=== PATIENT | female | born 1955 | race Caucasian/White ===

== ENCOUNTER 2019-11-16 13:40 | Emergency (ER) | payer OTHER, SELFPAY ==
[2019-11-16 13:45] VITALS: BP 133/60; PULSE 89; RESP 16; TEMP 36.4; O2SAT 99
--- NOTE | 2019-11-16 13:47 | DI.RAD.S_ITS ---
PROCEDURE: XR WRIST RT MIN 3V INDICATIONS: glf, rt wrist pain TECHNIQUE: 4 views of the wrist were acquired. COMPARISON: None. FINDINGS: Bones: No dislocations. No suspicious bony lesions. There is a distal radius transverse Colles'fracture, and a small fracture through the base of the ulnar-styloid process tip Scaphoid view: No trauma to the scaphoid is found. Soft tissues: No suspicious soft tissue calcifications. IMPRESSION: Acute fracture transverse distal radius, intra-articular and dorsally angulated. Minimally displaced ulnar styloid process tip fracture. Dictated by: Bryan Sears M.D. on 11/16/2019 at 14:31 Approved by: Bryan Sears M.D. on 11/16/2019 at 14:32
--- NOTE | 2019-11-16 13:57 | ED_ITS ---
HPI - Extremity Injury (Upper) General Chief Complaint: Extremity Injury, Upper Stated Complaint: possible broken right wrist Time Seen by Provider: 11/16/19 13:45 Source: patient Mode of arrival: Ambulatory Limitations: no limitations History of Present Illness HPI narrative: The patient is a 64-year-old female who presents with right wrist injury. She was walking on rocks when she slipped and fell. She has obvious deformity but no numbness or tingling. No other injury. MD complaint: injury to: right and wrist Related Data Previous Rx's Medication Instructions Recorded hydrocodone-acetaminophen [[place]] 1 tab PO Q6H #10 tab 11/16/19 Review of Systems Review of Systems Narrative: GENERAL: Denies chills,fever HEENT: Denies throat pain RESPIRATORY: Denies dyspnea, cough, wheezing CARDIOVASCULAR: Denies chest pain, palpitations GASTROINTESTINAL: Denies nausea, vomiting MUSCULOSKELETAL: See HPI SKIN: No rash, no laceration, no pruritus NEUROLOGIC: Denies weakness, dizziness, headache, numbness 8 point review of systems is negative except for those stated above and HPI Patient History Medical History Patient denies medical problems (Acute) Exam Initial Vital Signs Initial Vital Signs: Vital Signs Temperature 97.6 F 11/16/19 13:45 Pulse Rate 89 11/16/19 13:45 Respiratory Rate 16 11/16/19 13:45 Blood Pressure 133/60 11/16/19 13:45 Pulse Oximetry 99 11/16/19 13:45 GENERAL: Well-appearing, well-nourished and in no acute distress. CARDIOVASCULAR: peripheral pulses in tact, cap refill <2 sec RESPIRATORY: No respiratory distress, speaks in full sentences without difficulty EXTREMITIES: Normal range of motion, no clubbing or edema. Neurovascularly intact NEUROLOGICAL: Cranial nerves II through XII grossly intact. Normal gait and speech. SKIN: Warm, dry, no petechiae, no rashes or lesions. Procedures Nerve Block Nerve Block 1: Time out performed: Yes Local Anesthetic: lidocaine 2% Amount of anesthesia used (mL): 5 Side: left Nerve Blocks: hematoma block Intraoral Nerve Block: supraperiosteal Procedure Successful: Yes Patient Tolerated Procedure: Well Complications: none Orthopedic Fracture Reduction Fracture #1: Time Out Performed: Yes Side: right Fracture Reduction Location: radius Technique: direct manipulation Post Reduction X-rays Demonstrate: anatomical reduction Post-reduction neuro exam: intact Post-reduction vascular exam: intact Splint Applied: Yes Patient Tolerated Procedure: Well Orthopedic Splinting/Casting Injury #1: Side: right Upper Extremity Injury Location: wrist Upper Extremity Immobilizer: sling/shoulder immobilizer and sugar tong splint Post splinting neuro exam: intact Post splinting vascular exam: intact Placed by: Provider Course Orders Ordered: ED Orders 11/16/19 13:47 XR wrist RT min 3V Stat 11/16/19 14:45 XR wrist RT 2V Stat Discontinued Medications Lidocaine HCl (Xylocaine 2%) 1 ml SUBCUT NOW ONE Stop: 11/16/19 14:19 Last Admin: 11/16/19 14:51 Dose: 1 ml Documented by: LIBERTAD Vital Signs Vital signs: Vital Signs - 8 hr 11/16/19 13:45 11/16/19 15:17 Temperature 97.6 F Pulse Rate 89 77 Respiratory Rate 16 15 Blood Pressure 133/60 129/76 Pulse Oximetry 99 100 MDM - Extremity Injury (Upper) Imaging Data Extremity x-ray #1: Radiologist's Impression: PROCEDURE: XR WRIST RT MIN 3V INDICATIONS: glf, rt wrist pain TECHNIQUE: 4 views of the wrist were acquired. COMPARISON: None. FINDINGS: Bones: No dislocations. No suspicious bony lesions. There is a distal radius transverse Colles'fracture, and a small fracture through the base of the ulnar- styloid process tip Scaphoid view: No trauma to the scaphoid is found. Soft tissues: No suspicious soft tissue calcifications. IMPRESSION: Acute fracture transverse distal radius, intra-articular and dorsally angulated. Minimally displaced ulnar styloid process tip fracture. Dictated by: Bryan Sears M.D. on 11/16/2019 at 14:31 Approved by: Bryan Sears M.D. on 11/16/2019 at 14:32 Extremity x-ray #2: Radiologist's Impression: PROCEDURE: XR WRIST RT 2V INDICATIONS: reduction TECHNIQUE: 2 views of the wrist were acquired. COMPARISON: [facility], XR WRIST RT MIN 3V, 11/16/2019, 13:50. FINDINGS: Bones: No previously on identified fractures or dislocations. No suspicious bony lesions. There has been a significant interval improvement in malalignment along the fracture plane involving the distal radius, after close reduction and splinting. Scaphoid view: Excellent reduction of fracture malalignment at the distal radius. No trauma to the scaphoid is suspected. Soft tissues: No suspicious soft tissue calcifications. IMPRESSION: Near-normal alignment established after closed reduction, and casting. Dictated by: Bryan Sears M.D. on 11/16/2019 at 15:14 Approved by: Bryan Sears M.D. on 11/16/2019 at 15:1 Discharge Plan Departure Patient Disposition: Home Clinical Impression: Distal radial fracture Qualifiers: Encounter type: initial encounter Fracture type: closed Fracture morphology: other intra-articular Laterality: right Qualified Code(s): S52.571A - Other intraarticular fracture of lower end of right radius, initial encounter for closed fracture Discharge Date/Time: 11/16/19 15:19 Instructions: DI for Distal Radius Fracture Activity Restrictions/Additional Instructions: *You have been diagnosed with distal radius fracture *What to do: Keep arm in splint at all times. This may require surgery. *Continue to take medications as directed [place] 1 tablet every 6 hours if needed for severe pain *Follow up with your primary care provider in 2-3 days *Return to ER if you should have increasing numbness tingling, increasingly or any new, worsening or concerning symptoms CONTROLLED SUBSTANCE DISCHARGE (Narcotoic/benzodiazepine/Flexeril/Phenergan) 1. You have been prescribed narcotic medications, it does have acetaminophen/Tylenol/paracetamol in it so do not take extra Tylenol or Tylenol containing products TRAMADOL DOES NOT CONTAIN TYLENOL 2. Please understand that we cannot provide further refills of narcotics, benzodiazepines or controlled substances through the ED and her pain management will need to be through your provider. 3. While on these medications you cannot drive or operate heavy machinery. 4. You cannot sign legal documents or perform any duties such as this. 5. As long as you're taking opiate pain medications he should also be taking a stool softener such as Colace, Dulcolax, MiraLAX or prune juice, to help avoid constipation. Prescriptions: New hydrocodone-acetaminophen [[place]] 5-325 mg tablet 1 tab PO Q6H Qty: 10 RF: 0
--- NOTE | 2019-11-16 14:45 | DI.RAD.S_ITS ---
PROCEDURE: XR WRIST RT 2V INDICATIONS: reduction TECHNIQUE: 2 views of the wrist were acquired. COMPARISON: [facility], [place], XR WRIST RT MIN 3V, 11/16/2019, 13:50. FINDINGS: Bones: No previously on identified fractures or dislocations. No suspicious bony lesions. There has been a significant interval improvement in malalignment along the fracture plane involving the distal radius, after close reduction and splinting. Scaphoid view: Excellent reduction of fracture malalignment at the distal radius. No trauma to the scaphoid is suspected. Soft tissues: No suspicious soft tissue calcifications. IMPRESSION: Near-normal alignment established after closed reduction, and casting. Dictated by: Bryan Sears M.D. on 11/16/2019 at 15:14 Approved by: Bryan Sears M.D. on 11/16/2019 at 15:15
[2019-11-16] MEDS: LIDOCAINE 2% INJ MDV 1 ML SUBCUT (14:51)
--- NOTE | 2019-11-16 15:00 | PC.NURSE ---
sugar tong splint applied
--- NOTE | 2019-11-16 15:00 | PC.NURSE ---
1450 Nerve Block with lidocaine performed by Dr. Higginbotham and then she reduced the fracture and we applied a splint.
[2019-11-16 15:17] VITALS: BP 129/76; PULSE 77; RESP 15; O2SAT 100
== END 2019-11-16 15:19 | disposition home or self-care (01) ==
PROVIDERS: Emergency Provider Emergency Medicine
DX: S52.571A Other intraarticular fracture of lower end of right radius, initial encounter for closed fracture (principal); W19.XXXA Unspecified fall, initial encounter
CPT/HCPCS: 25605; 29125; 64450; 73100; 73110; 99282; 99283